=== PATIENT | female | born 1955 | race Caucasian/White ===

== ENCOUNTER 2016-04-22 11:23 | Day surgery (SDC) | payer MEDICARE, MEDICAID ==
[~2016-04-22] VITALS: Ht 160 cm; Wt 72.6 kg
[~2016-04-22 11:23] MED LIST: BACTRIM DS 8001 TAB PO; BENTYL20 MG PO; CELEXA20 MG PO; DARVOCET-N 1001 EACH PO; ELITE MAGNESIUM1 TAB PO; ENJUVIA0.45 MG PO; ENJUVIA0.625 MG PO; ESTRACE0.5 MG PO; ESTRADIOL1 MG PO; FLEXERIL10 MG PO; IBUPROFEN 600M600 MG PO; LEXAPRO 20 MG T20 MG PO; LORTAB 5/500 501 TAB PO; MAREPA1200 MG PO; MULTI VITAMINS1 TAB PO; NAPROSYN 500MG500 MG PO; NEURONTIN 100100 MG PO; NEXIUM40 MG PO; PERCOCET1 TAB PO; PREDNISONE20 MG PO; PYRIDIUM 200MG200 MG PO; SEPTRA DS 800 M1 TAB PO; TRAMADOL 50MG T50 MG PO; VALIUM 2MG TABLE2 MG PO; ZOFRAN4 MG PO
[2016-04-22 12:05] VITALS: BP 170/87
[2016-04-22 12:29] VITALS: BP 170/87
[2016-04-22 12:31] VITALS: BP 170/87
--- NOTE | 2016-04-22 12:36 | Procedure Note ---
Procedure detail Date of procedure: 04/22/16 Anesthesiologist: Priyank canales CRNA Complications: None Pre-procedure diagnosis: Myofascial pain syndrome LEFT cervical paraspinous muscle and LEFT trapezius muscle. Post-procedure diagnosis: Same. Indications for procedure: Very pleasant 61-year-old white female that comes to our procedure clinic today for trigger point injections the LEFT cervical paraspinal muscles as well as LEFT trapezius muscle. Patient has constant cervical neck pain on the LEFT side as well as left-sided trapezius pain secondary to myofascial pain syndrome. We will give her trigger point injections LEFT cervical paraspinous muscles lower LEFT trapezius muscle. Procedure detail: Details of the procedure were 20 to the patient. The patient taken to procedure room where noninvasive monitors were placed including noninvasive blood pressure cuff as well as pulse oximeter. The patient was placed in the sitting position. The area over the LEFT cervical paraspinous muscles as well as LEFT trapezius muscle was cleansed using chlorhexidine as a cleansing solution. Markers were placed at 3 separate positions on the LEFT cervical paraspinous muscle as well as LEFT trapezius muscle. 2 mL of a solution containing 0.25 percent Marcaine +1 percent lidocaine and 40 mg of Depo-Medrol were injected at each site. Patient are the procedure without difficulty. There were no complications. Plan and disposition: Patient was reevaluated 10 minutes post procedure. Patient reports 50-75 percent improvement terms of her LEFT cervical neck pain as well as LEFT trapezius pain. She'll continue to follow the some pain clinic for further evaluation. at [id number]
[2016-04-22 12:45] VITALS: BP 152/80
== END 2016-04-22 12:45 ==
LOC: PM 11:23
PROC: 3E0233Z Introduction of Anti-inflammatory into Muscle, Percutaneous Approach (ICD-10-PCS; principal; 2016-04-22)
PROC: 3E023BZ Introduction of Anesthetic Agent into Muscle, Percutaneous Approach (ICD-10-PCS; 2016-04-22)
DX: M79.1 Myalgia (principal)
CPT/HCPCS: J1040

== ENCOUNTER → 2017-03-04 | Outpatient (CLI) | payer MEDICARE, MEDICAID ==
[~2017-03-04] MED LIST changes: +FOLIC ACID 1MG T1 MG PO; +VITAMIN B122500 MC1 PO
[2017-03-04 12:56] LABS: HEMOGLOBIN 14.1 g/dL (12.2-16.2); LYMPH # 3.1 K/mm3 (0.7-4.5); LYMPH % 35.8 % (10-50.0)
--- NOTE | 2017-03-04 13:30 | RADIOLOGY REPORT PS360 ---
CHEST(2 VIEWS-NOT PORTABLE) HISTORY: DYSPNEA ON EXERTION ORDERING PHYSICIAN: Mitchell Ospina MD PATIENT AGE: 62 years COMPARISON: 07/12/2013 FINDINGS: The cardiomediastinal silhouette and pulmonary vascularity are within normal limits. The lungs are clear without infiltrates, suspicious nodules, or pleural effusions. No acute bony abnormalities. There is evidence of old granulomatous disease IMPRESSION: No change with no acute finding
[2017-03-04 14:00] LABS: BUN 13 mg/dL (7-18)
[2017-03-04 14:03] LABS: GFR (ESTIMATED) 63 ML/MIN (59-)
== END ==
LOC: RAD 12:11 → LAB 12:11
PROVIDERS: Internal Medicine Adolescent Medicine
DX: R06.09 Other forms of dyspnea (principal); N39.42 Incontinence without sensory awareness; E78.5 Hyperlipidemia, unspecified

== ENCOUNTER → 2017-03-06 | Outpatient (CLI) | payer MEDICARE, MEDICAID ==
[2017-03-06 16:06] LABS: URINE BILIRUBIN - DIPSTICK NEGATIVE (NEG); URINE BLOOD NEGATIVE (NEG)
[2017-03-06 16:29] LABS: URINE SQUAMOUS CELLS 20-50 #/hpf (0-5)
== END ==
LOC: LAB 15:56
PROVIDERS: Internal Medicine Adolescent Medicine
DX: N39.42 Incontinence without sensory awareness (principal); E78.5 Hyperlipidemia, unspecified